=== PATIENT | male | born 1940 | race Caucasian/White ===

== ENCOUNTER 2025-08-11 12:03 | Outpatient (CLI) | payer MEDICARE, OTHER ==
[~2025-08-11 12:03] MED LIST: AMLO10TA14 PO; APIX5TAB3 PO; ASPI-611 PO; DOXA2TAB13 PO; ENZA40CA PO; LOSA-418 PO; METO50TA16 PO
[2025-08-11 12:36] LABS: MEAN PLATELET VOLUME 7.6 FL (7.4-10.4); RED CELL DISTRIBUTION WIDTH 13.8 % (11.5-14.5)
[2025-08-11 12:45] LABS: APTT 56 SECONDS (22-32); INR 1.4 INR
--- NOTE | 2025-08-11 12:51 | RADIOLOGY REPORT ---
DI CHEST,TWO VIEWS CLINICAL HISTORY: AV STENOSIS,SOB,CAROTID STENOSIS COMPARISON: DI CHEST,SINGLE VIEW on DOS: 07/28/25 TECHNIQUE: Frontal and lateral view of the chest was obtained FINDINGS: Lines and Tubes: None Lungs: No focal consolidation. Pleura: No effusion. No pneumothorax. Cardiomediastinal contours: Unremarkable. Atherosclerotic vascular calcifications of the thoracic aorta are noted. Bones: No acute osseous abnormality. IMPRESSION: No acute cardiopulmonary disease.
[2025-08-11 13:02] LABS: CREATININE 0.84 MG/DL (0.60-1.10); PRO BRAIN NATRIURETIC PEPTIDE 269 PG/ML (0-450); TOTAL CARBON DIOXIDE 30.1 MMOL/L (24-32); eGFR 87 ML/MIN
[2025-08-11] MEDS ORDERED: IODIXANOL 320 MG/ML INFUS..BTL 100ML IV ONE ×2 (13:28→14:05)
--- NOTE | 2025-08-11 15:54 | ELECTROCARDIOGRAPH REPORT ---
[facility] Test Date: 2025-08-11 Test Time: 12:16:47 Pat Name: BRITTNY MAYES Department: PRE/OP CARDIOLOGY Room: Gender: M [employer]: [place] : 1940 Requested By: MAHSA CHU Order Number: [id number] Reading MD: Measurements Intervals [place] Rate: 71 P: 64 ME: 150 QRS: -75 QRSD: 95 T: 80 QT: 405 QTc: 441 Interpretive Statements Sinus rhythm Ventricular premature complex Left anterior fascicular block Please click the below link to view image of tracing.
--- NOTE | 2025-08-12 10:46 | RADIOLOGY REPORT ---
Procedure: CT CTA TAVR Reason for study/Clinical History: AV STENOSIS,SOB,CAROTID STENOSIS Comparison Study: None Exam Date: 08/11/2025 01:51 PM TECHNIQUE: Multiplanar reformatted images were generated from volumetric data acquired on a multidetector CT scanner. Cardiac gating was utilized. Arterial phase images were obtained through the chest, abdomen and pelvis following intravenous administration of contrast material. 150 mL visipaque [address] dose reduction techniques were utilized. 3-D reconstructions were performed on an independent workstation. FINDINGS: Vascular: Aortic measurements: Aortic annulus: 29.8 x 21.8 mm Sinus of [place]: right cusp 34.9 mm, left cusp 37.4 mm, non-coronary cusp 35.3 mm Right coronary distance: 12.2 mm Left coronary distance: 14.[address] junction 27.4 mm Ascending aorta 35.8 mm Aortic arch 28.3 mm Descending aorta 29.2 mm Minimal abdominal aorta 11.3 mm Right common iliac 6.34 mm, tortuosity index 1.19 Left common iliac 7.98 mm, tortuosity index 1.24 There is normal caliber of aorta. No aortic dissection. Aortic arch anatomy is variance, with bovine configuration / common origin of the innominate and left common carotid arteries. No exophytic calcified or soft plaque. Calcified and noncalcified plaque is present eccentrically. There is normal dimension of the main pulmonary artery. Heart is normal in size. Mild coronary artery calcification. No pericardial effusion. Mediastinum: 11 mm subcarinal lymph node. Lungs: Mild biapical scarring. Calcified granulomas. hypoventilatory changes are present dependently. No consolidation. Pleura: No effusion or pneumothorax. Chest wall: No acute abnormality. Abdomen and Pelvis: Liver: No arterial phase enhancing lesions. Gallbladder: Contracted. No calcified gallstones. Spleen: Normal in appearance. Pancreas: Normal in appearance. Adrenals: There is a 1.9 x 1.7 cm enhancing right adrenal lesion, incompletely characterized. Left adrenal is within normal limits. Kidneys: Symmetric enhancement with corticomedullary phase differentiation which limits assessment for renal cortical neoplasm. Bowel: No findings of bowel obstruction. Diverticulosis. Assessment of the bowel is limited without oral contrast material. Appendix is normal in appearance. Peritoneum: No free air or free fluid. Lymph nodes: No lymphadenopathy by CT size criteria. Pelvic structures: Mild thickening of the urinary bladder wall. No pelvic mass identified. Bones: No aggressive appearing osseous lesions identified. IMPRESSION: 1. TAVR planning with vascular measurements as described above. 2. No exophytic calcified or soft plaque of the aorta. 3. There is a 1.9 cm enhancing right adrenal lesion, incompletely characterized. 4. Recommend further evaluation with CT or MRI using an adrenal mass protocol.
== END 2025-08-11 23:59 | disposition home or self-care (01) ==
LOC: RAD 12:03
PROVIDERS: ATTEND Internal Medicine Cardiovascular Disease
DX: K57.30 Diverticulosis of large intestine without perforation or abscess without bleeding (principal); I35.0 Nonrheumatic aortic (valve) stenosis; R06.02 Shortness of breath; I65.29 Occlusion and stenosis of unspecified carotid artery; I70.0 Atherosclerosis of aorta
CPT/HCPCS: 36415; 71046; 71275; 74174; 75572; 80053; 83880; 85025; 85610; 85730; 93005; Q9967